=== PATIENT | female | born 1990 | race Hispanic/Latino ===

== ENCOUNTER 2025-08-07 17:20 | Emergency (ER) | payer OTHER, SELFPAY ==
--- NOTE | ~2025-08-07 | CT_ITS ---
EXAMINATION: CT facial & cervical spine wo COMPARISON: None HISTORY: syncopal episode, bruising and pain to eye orbit TECHNIQUE: Axial images were obtained without IV contrast. Sagittal, coronal reconstruction images were obtained from the axial views. CT scan performed using dose optimization techniques including the following automated exposure control; adjustment of mA and/or kV; use of iterative reconstruction technique. Automatic exposure control was used to reduce radiation dose. Permanent radiation dose record is archived to PACS. FINDINGS: CT facial bones: The nasal bones are intact. Anterior maxillary sinus lara and zygomatic arches are intact. Temporomandibular joints are intact. Orbital floors and medial and orbits are intact. No retrobulbar hemorrhage identified. No preseptal soft tissue swelling CT cervical spine: The lung apices and soft tissues are unremarkable. No fracture or subluxation identified. Severe loss of disc height C6-7 with moderate to severe canal and foraminal stenosis, outpatient MRI is suggested. IMPRESSION: No acute fracture. Reviewed, dictated and finalized at location A. IMPRESSION: No acute fracture.
--- NOTE | ~2025-08-07 | CT_ITS ---
EXAMINATION: CT brain wo con COMPARISON: None HISTORY: syncopal episode TECHNIQUE: Axial images were obtained through the brain without IV contrast. CT scan performed using dose optimization techniques including the following automated exposure control; adjustment of mA and/or kV; use of iterative reconstruction technique. Automatic exposure control was used to reduce radiation dose. Permanent radiation dose record is archived to PACS. FINDINGS: No acute infarct or parenchymal hemorrhage. No abnormal mass or mass effect. No midline shift. No extra-axial fluid collections. No hydrocephalus. . Mastoid air cells unremarkable. Sinuses and orbits unremarkable. No acute fracture. No significant facial or scalp soft tissue swelling evident. No radiopaque foreign body is seen. Impression: 1.No acute intracranial abnormality. Reviewed, dictated and finalized at location A. Impression: 1.No acute intracranial abnormality.
[2025-08-07 17:23] VITALS: BP 149/95; PULSE 84; RESP 16; TEMP 36.8; O2SAT 100
[2025-08-07 18:08] VITALS: BP 125/89; PULSE 78; RESP 16; O2SAT 100
--- NOTE | 2025-08-07 18:16 | ECG_ITS ---
Test Date: 2025-08-07 19:56:55 Measurements Intervals [place] Rate: 82 P: 37 CT: 152 QRS: 19 QRSD: 96 T: 20 QT: 376 QTc: 439 Interpretive Statements SINUS RHYTHM LOW QRS VOLTAGE OTHERWISE NORMAL TRACING No previous ECG available for comparison Electronically Signed On 08-08-2025 08:21:10 CDT by Jerome Tolentino M.D.
[2025-08-07 18:17] LABS: Hematocrit 44.5 % (37.0-47.0); Hemoglobin 15.1 g/dL (12.0-15.0); Immature Granulocyte Percent A 0.3 % (0-0.5); Lymphocytes Absolute Auto 2.44 K/mm3 (0.9-3.2); Mean Corpuscular HGB Conc 33.9 g/dl (32-36); Mean Corpuscular Hemoglobin 28.1 pg (26-34); Mean Corpuscular Volume 82.9 fl (80-100); Nucleated Red Blood Cells Absolute Auto 0.000 K/mm3 (0.0-0.012); Nucleated Red Blood Cells Perc 0.0 % (0.0-0.2); Platelet Count Result 213 k/mm3 (150-375); Red Blood Count 5.37 M/mm3 (4.2-5.4); White Blood Count 9.7 K/mm3 (4.5-10.0)
[2025-08-07 18:28] LABS: INR 1.1; Prothrombin Time 13.8 Seconds (11.1-14.7)
[2025-08-07 18:29] LABS: Alanine Aminotransferase 22 U/L (6-35); Albumin Level 4.6 g/dL (3.5-5.1); Alkaline Phosphatase 80 U/L (38-126); Anion Gap 9 mmol/L (4-12); Aspartate Amino Transferase 30 U/L (14-36); Bilirubin,Total 1.1 mg/dL (0.2-1.3); Blood Urea Nitrogen 11 mg/dL (7-17); Calcium 9.2 mg/dL (8.4-10.2); Carbon Dioxide 25 mmol/L (22-30); Chloride 104 mmol/L (98-107); Estimated CRCL calculation 90 ml/min; Estimated Glomerular Filt Rate > 60; Glucose 84 mg/dL (65-110); Partial Thromboplastin Time 29.1 Seconds (22.3-36.8); Potassium 3.9 mmol/L (3.4-5.0); Sodium 138 mmol/L (137-145); Total Protein 8.3 g/dL (6.3-8.2)
[2025-08-07 18:31] VITALS: BP 130/80; PULSE 92; RESP 20; O2SAT 100
--- OUTSIDE RECORDS SUMMARY | 2025-08-07 19:22 | XMS_ITS | Encounter Summary ---
Author Organization [facility] Address [address] [place] [address] Care Team Providers Care Orthopedic Physician Name Role Phone Francheska Bone MD Primary Care Provider + Encounter Details Date Type Department Care Team (Late Contact Info) Description 07/01/2025 Results Follow-Up [facility] [address] [place] [address] Francheska Bone MD [address] [place] [address] Cytopath Cerv/Vag Thin Layer, HUMAN PAPILLOMAVIRUS, HIGH-RISK TYPES Social History Tobacco Use Types Packs/Day Years Used Date Smoking Tobacco: Never Passive Smoke Exposure: Past Smokeless Tobacco: Never Alcohol Use Standard Drinks/Week Comments Not Currently 0 (1 standard drink = 0.6 oz pure alcohol) I drink wine or a cocktail less than twice a year PHQ-2 Answer Date Recorded Patient Health Questionnaire-2 Score 0 06/24/2025 Comments Unknown Sex and Gender Information Value Date Recorded Sex Assigned at Female 06/25/2025 9:35 AM CDT Legal Sex Female 4:09 PM CDT Gender Identity Not on file Sexual Orientation Not on file documented as of this encounter Plan of Treatment Upcoming Encounters Date Type Department Care Team (Late Contact Info) Description 12/27/2025 7:30 AM 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 Family [facility] [address] [place] [address] Francheska Bone MD [address] [place] [phone] documented as of this encounter Visit Diagnoses Not on filedocumented in this encounter Care Teams Orthopedic Physician Relationship Specialty Start Date End Date Francheska Bone MD [address] [place] [phone] PCP - General FAMILY PRACTICE 06/24/25 documented as of this encounter
--- OUTSIDE RECORDS SUMMARY | 2025-08-07 19:22 | XMS_ITS | Clinical Summary ---
Author Organization [facility] Address [address] [place] [address] Care Team Providers Care Chlorinator Name Role Phone Francheska Siegel MD Primary Care Provider + Allergies No known active allergies Medications tirzepatide (ZEPBOUND) 15 MG/0.5ML injectionIndicat ions:Weight Loss Inject 15 mg into the skin once a week. Indications : Weight Loss 6 mL 07/15/2025 Active Active Problems Problem Noted Date Diagnosed Date Adult ADHD 06/24/2025 Autism (HHS/HCC) 06/24/2025 Overweight 06/24/2025 Overview (06/24/2025): - The patient has been on Zepbound, an anti-obesity pharmacotherapy, for the past two years. - This has resulted in a reduction in weight from 220 pounds to 162 pounds. - The medication is covered by her insurance. - No history of pancreatitis and no FH thyroid cancer. Assessment & Plan (06/24/2025 11:51 AM CDT): Weight management: Improved to overweight category. - On Zepbound for 2 years, weight reduced from 220 to 162 pounds. Would like to try higher dose. Increase zepbound to 15 mg weekly. Revisit in 6 months to see response and decide on adjustment. - Insurance covers medication. - Continue current regimen. Encounters Date Type Department Care Team Description 07/01/2025 Results Follow-Up [facility] [address] [facility] [address] Francheska Siegel MD Cytopath Cerv/Vag Thin Layer, HUMAN PAPILLOMAVIRUS, HIGH-RISK TYPES 06/28/2025 Results Follow-Up [address] [place] [address] Francheska Siegel MD CHLAM/GC/TRICHOMONA S PROFILE 06/24/2025 11:10 AM CDT Office Visit [place] [address] [place] [address] Francheska Siegel MD New Patient (Here to get established she just moved here. She is on Zepbound from her previous doctor. ) 06/24/2025 9:35 AM CDT - 06/24/2025 11:59 PM CDT Hospital Encounter [facility] [address] [place] [address] Francheska Siegel MD Discharge Disposition: Home or Self Care (Routine Discharge) 06/24/2025 - 06/24/2025 9:34 AM CDT Hospital Encounter [facility] [address] [place] [address] Francheska Siegel MD Discharge Disposition: Home or Self Care (Routine Discharge) 06/24/2025 Travel from Last 3 Months Family History Medical History Relation Comments No Known Problems Daughter Alcohol Abuse Father Hypertension Father Diabetes Maternal Aunt Drug Abuse Maternal Aunt Alcohol Abuse Maternal Grandfather Diabetes Maternal Grandfather Drug Abuse Maternal Grandfather Early Maternal Grandfather Hypertension Maternal Grandfather Alcohol Abuse Maternal Grandmother Diabetes Maternal Grandmother Heart Disease Maternal Grandmother Hypertension Maternal Grandmother Alcohol Abuse Mother Cancer Mother skin Depression Mother Diabetes Mother Hypertension Mother Mental Health Mother Miscarriages / Stillbirths Mother Alcohol Abuse Paternal Aunt Arthritis Paternal Aunt Depression Paternal Aunt Diabetes Paternal Aunt Drug Abuse Paternal Aunt Hyperlipidemia Paternal Aunt Hypertension Paternal Aunt Mental Health Paternal Aunt Alcohol Abuse Paternal Grandfather Diabetes Paternal Grandfather Early Paternal Grandfather Hypertension Paternal Grandfather Kidney Disease Paternal Grandfather Alcohol Abuse Paternal Uncle Diabetes Paternal Uncle Hypertension Paternal Uncle No Known Problems Sister 2 No Known Problems Son Relation Status Comments Daughter Alive Father Alive Maternal Aunt Alive Maternal Grandfather Alive Maternal Grandmother Alive Mother Alive Paternal Aunt Alive Paternal Grandfather Alive Paternal Uncle Alive Sister 1 Alive Sister 2 Alive Son Alive Social History Tobacco Use Types Packs/Day Years Used Date Smoking Tobacco: Never Passive Smoke Exposure: Past Smokeless Tobacco: Never Tobacco Cessation:Counseling Given: No Alcohol Use Standard Drinks/Week Comments Not Currently [...] on file Sexual Orientation Not on file Last Filed Vital Signs Vital Sign Reading Time Taken Comments Blood Pressure 116/71 06/24/2025 11:13 AM CDT Pulse 92 06/24/2025 11:13 AM CDT Temperature 36.4 C (97.5 F) 06/24/2025 11:13 AM CDT Respiratory Rate - - Oxygen Saturation 100% 06/24/2025 11:13 AM CDT Inhaled Oxygen Concentration - - Weight 73.7 kg (162 lb 6.4 oz) 06/24/2025 11:13 AM CDT Height 157.5 cm (5' 2) 06/24/2025 11:13 AM CDT Body Mass Index 29.7 06/24/2025 11:13 AM CDT Plan of Treatment Upcoming Encounters Date Type Department Care Team (Late st Contact Info) Description 12/27/2025 7:30 AM COLD WORKING SUPERVISOR Office Visit [facility] Family [facility] [address] [facility] [address] [place] [address] Francheska Siegel MD [address] [place] [address] Health Maintenance Due Date Last Done Comments Hepatitis C 2006 DTaP, Tdap and Td Vaccines ( 1 - Tdap) 2007 Hepatitis B Vaccines (1 of 3 - 19+ 3-dose series) 2007 HPV Vaccines (1 - 3-dose SCD M series) 2015 COVID-19 Vaccine (2023-2 5 season) 2025 Annual Physical 06/24/2026 06/24/2025 Cervical Cancer Screening Pa p Smear (Age 30 to 64) Every 3 Years 06/24/2028 06/24/2025 Cervical Cancer Screening Pa p with HPV Testing (Age 30 to 64) Every 5 Years 06/24/2030 06/24/2025 Cervical Cancer Screening with HPV 06/24/2030 PHQ-2 (Physician [place]) Completed 06/24/2025 Meningococcal B Vaccine Aged Out No l onger eligible based on patient's age to complete this topic Meningococcal Vaccine Aged Out No angie ricci eligible based on patient's age to complete this topic Pneumococcal Vaccine: Pediat rics (0 to 5 Years) and At-Risk Patients (6 to 49 Years) Aged Out No longer eligi ble based on patient's age to complete this topic RSV Immunizations Under 20 Months Aged Out No longer eligible based on patient's age to complete this topic Procedures Procedure Name Priority Date/Time Associated Diagnosis Comments HUMAN PAPILLOMAVIRUS, HIGH-RISK TYPES Routine 06/24/2025 12:00 PM CDT CHLAM/GC/TRICHOMONA S PROFILE Routine 06/24/2025 11:38 AM CDT Screening examination for STD (sexually transmitted disease) CYTOPATH CERV/VAG THIN LAYER Routine 06/24/2025 12:00 AM CDT from Last 3 Months Results * HUMAN PAPILLOMAVIRUS, HIGH-RISK TYPES (06/24/2025 12:00 PM CDT) SPEC DESCRIPTION CERVIX 06/25/20 11:56 AM CDT [facility] HPV DNA HIGH RISK NEGATIVE NEGATIVE 06/28/2025 6:14 PM CDT [facility] Comment:SEE CYTOLOGY REPORT 06/24/2025 12:0 0 PM CDT us Francheska Siegel MD PATHOLOGY/CYTOLOGY ORDER PIERRE Final Result [facility] [address] [place] [address], * CHLAM/GC/TRICHOMONAS PROFILE (06/24/2025 11:38 AM CDT) SPEC DESCRIPTION URINE 06/24/20 25 11:38 AM CDT [facility] CHLAMYDIA RNA TMA NEGATIVE NEGATIVE 025 4:47 PM CDT [facility] Comment:PERFORMED BY NUCLEIC ACID AMPLIFICATION N.GONORRHOEAE RNA TMA NEGATIVE NEGATIVE 06/25/2025 4:47 PM CDT [facility] Comment:PERFORMED BY NUCLEIC ACID AMPLIFICATION TRICHOMONAS NEGATIVE NEGATIVE 06/25/2025 4:47 PM CDT [facility] Comment:PERFORMED BY NUCLEIC ACID AMPLIFICATION URINE SPECIMEN / Unknown 06/24/2025 11:38 AM CDT us Francheska Siegel MD MICROBIOLOGY - GENERAL O RDERABLES Final Result [facility] [address] [place] [address], * Cytopath Cerv/Vag Thin Layer (06/24/2025 12:00 AM CDT) THIN PREP PAP [facility] [address] [place] [address] Department of Pathology Pathology Report CERVICAL/VAGINAL PAP SMEAR REPORT Name: RAO HOUSTON Joe Age: 9 1990 (Age: 34) Location: [facility] Sex: F Collected Date: 06/24/2025 [facility] #: [id number] Date Received: 06/25/2025 Date Reported: 06/30/2025 Provider: FRANCHESKA SIEGEL MD INTERPRETATION CERVICAL/ENDOCERVI BERTO: SATISFACTORY FOR EVALUATION. ENDOCERVICAL/TRANS FORMATION ZONE COMPONENT ABSENT. NEGATIVE FOR INTRAEPITHELIAL LESION OR MALIGNANCY. NEGATIVE FOR HIGH RISK HPV. The FDA approved Aptima HPV assay is an in vitro nucleic acid amplification test for the qualitative detection of E6/E7 viral messenger RNA (mRNA) from 14 high-risk types of human papillomavirus (HPV) in cervical specimens. The high-risk HPV types detected by the assay include: 16,18,31,33,35,39, 45,51,52,56,58,59, 66, and 68. Electronically Signed Out By JERSEY Astudillo (ASCP) CLINICAL HISTORY Z12.4 CERVICAL CANCER SCREENING SCREENING PAP ThinPrep Pap Test with HR HPV testing in patient > 30 years requested. Date of Last Menstrual Period: 06/04/2025 Menstrual Status: Regular SPECIMEN SUBMITTED CERVICAL/ENDOCERVI BERTO Specimen Received:1 Thin Prep Vial, Image Assisted Pap (SMD) Please note: The Pap smear is not a diagnostic test. It is a screening test. Negative results on combined screening (Pap test and HPV-DNA) have a high negative predictive value (99.1-100 percent) for cervical cancer. The pap test is not effective in detecting cervical adenocarcinoma. [facility] 06/24/2025 06/25/2025 10: 06 AM CDT Comment:CERVICAL/ENDOCERVICA L Francheska Siegel MD PATHOLOGY/CYTOLOGY ORDER PIERRE Final Result [facility] [address] [place] [address], from Last 3 Months Insurance [employer] Care Teams Chlorinator Relationship Specialty Start Date End Date Francheska Siegel MD [address] [place] [id number] PCP - General FAMILY PRACTICE 06/24/25
--- OUTSIDE RECORDS SUMMARY | 2025-08-07 19:22 | XMS_ITS | Encounter Summary ---
Author Organization [facility] Address [address] [place] [address] Care Team Providers Care Cement Contractor Name Role Phone Francheska Bone MD Primary Care Provider + Encounter Details Date Type Department Care Team (Late Contact Info) Description 06/28/2025 Results Follow-Up [address] [address] Francheska Bone MD [address] [place] [address] CHLAM/GC/TRICHOMONAS PROFILE Social History Tobacco Use Types Packs/Day Years [...] (Late Contact Info) Description 12/27/2025 7:30 AM EDUCATIONAL SPECIALIST Office Visit [address] [address] Francheska Bone MD [address] [place] [address] documented as of this encounter Visit Diagnoses Not on filedocumented in this encounter Care Teams Cement Contractor Relationship Specialty Start Date End Date Francheska Bone MD [address] [place] [id number] PCP - General FAMILY PRACTICE 06/24/25 documented as of this encounter
[2025-08-07] MEDS: SODIUM CHLORIDE 0.9% IV 1,000 ML 999 ML IV CONT (19:39)
[2025-08-07] MEDS: METOCLOPRAMIDE HCL INJ 10 MG/2 ML VIAL IV PUSH (19:40)
[2025-08-07] MEDS: ACETAMINOPHEN 500 MG TABLET 1000 MG PO (19:40)
[2025-08-07 19:59] VITALS: PULSE 99
--- NOTE | 2025-08-07 19:59 | ED.HEATRA ---
HPI - Head Injury General Chief complaint: Head Injury Stated complaint: not feeling well after syncopal episode saturday Time Seen by Provider: 08/07/25 18:39 Source: patient Mode of arrival: ambulatory Limitations: no limitations History of Present Illness HPI Narrative: This is a 35-year-old female that presents to the emergency department after syncopal episode 4 days ago. Reports she was feeling lightheaded/dizzy. She passed out and hit her head. Reports since she has had headaches, nausea and vomiting. Denies vision changes, chest pain, shortness of breath, focal numbness or weakness. Related Data Allergies Allergy/AdvReac Type Severity Reaction Status Date / Time No Known Allergies Allergy Verified 08/07/25 17:26 Review of Systems Review of Systems: All systems reviewed & are unremarkable except as noted in HPI and below PMFSH Past Medical History Medical History (Updated 08/07/25 @ 20:05 by Kerri Fleming PA-C) No active medical problems Exam Narrative: GENERAL: Well-appearing, well-nourished, and in no acute distress. HEAD: Normocephalic, atraumatic. EYES: PERRLA and EOMI. ENT: Nares clear, no rhinorrhea or epistaxis. Mucous membranes moist. Oropharynx without tonsillar hypertrophy exudate or other lesions. Bilateral TMs pearly mendoza non-bulging NECK: Supple. No adenopathy or masses. CHEST: Clear to auscultation. No respiratory distress. No wheezes rales or rhonchi HEART: Regular rate and rhythm. No murmur heard. Normal peripheral pulses. EXTREMITIES: Normal range of motion. No edema. Strength equal in bilateral upper and lower extremities (5/5) SKIN: Warm, dry, no rash. NEURO: No focal deficits. Alert and oriented x3. Cranial nerves 2-12 grossly intact. Normal [id number] PSYCH: Normal mood and affect Course Course Emergency Course: Patient updated on her workup and agrees with plan of care Vital Signs Vital signs: Vital Signs Temperature 98.2 F 08/07/25 17:23 Pulse Rate 84 08/07/25 17:23 Respiratory Rate 16 08/07/25 17:23 Blood Pressure 149/95 H 08/07/25 17:23 Pulse Oximetry 100 08/07/25 17:23 Oxygen Delivery Room Air 08/07/25 17:23 Temperature 98.2 F 08/07/25 17:23 Pulse Rate 99 08/07/25 19:59 Respiratory Rate 20 08/07/25 18:31 Blood Pressure 130/80 08/07/25 18:31 Pulse Oximetry 100 08/07/25 18:31 Oxygen Delivery Room Air 08/07/25 17:23 MDM - Head Injury MDM Narrative Medical decision making narrative: Patient presents emergency department after a syncopal episode 4 days ago with head injury. Her vitals are stable. She is neurologically intact. CBC metabolic panel without concerning findings. test is negative. EKG shows normal sinus rhythm. CT brain, cervical spine, facial bones without acute findings. Patient updated on her workup and agrees with plan of care. She is to follow up with primary provider. She was given warnings to return to the ER Differential Diagnosis Differential diagnosis: Likely concussion without loss of consciousness, closed head injury, postconcussion syndrome, subdural hematoma, concussion with loss of consciousness and other (Vasovagal syncope, orthostatic hypotension, dehydration, electrolyte derangement) Lab Data Attestation: I reviewed the patient's lab results. 08/07/25 18:10 08/07/25 18:09 Labs: Lab Results 08/07/25 08/07/25 08/07/25 Range/Units 18:09 18:10 19:59 WBC 9.7 (4.5-10.0) K/mm3 RBC 5.37 (4.2-5.4) M/mm3 Hgb 15.1 H (12.0-15.0) g/dL Hct 44.5 (37.0-47.0) % MCV 82.9 (80-100) fl MCH 28.1 (26-34) pg MCHC 33.9 (32-36) g/dl RDW 12.7 (11.5-14.5) % Plt Count 213 (150-375) k/mm3 MPV 11.7 H (7.4-10.4) fl Immature Gran % (Auto) 0.3 (0-0.5) % Neut % (Auto) 69.3 (45.5-73.1) % Lymph % (Auto) 25.2 (18.3-44.2) % Sandoval % (Auto) 3.9 (2.6-8.5) % Eos % (Auto) 0.7 (0-4.4) % Baso % (Auto) 0.6 (0.2-1.2) % Lymph # (Auto) 2.44 (0.9-3.2) K/mm3 Sandoval # (Auto) 0.4 (0.1-0.6) K/mm3 Eos # (Auto) 0.1 (0-0.3) K/mm3 Baso # (Auto) 0.1 (0.0-0.1) K/mm3 Abs Immat Gran (auto) 0.03 (0.00-0.031) K/mm3 Absolute Neuts (auto) 6.7 (1.3-6.7) K/mm3 Absolute Nucleated RBC 0.000 (0.0-0.012) K/mm3 Nucleated RBC % 0.0 (0.0-0.2) % PT 13.8 (11.1-14.7) Seconds INR 1.1 APTT 29.1 (22.3-36.8) Seconds Sodium 138 (137-145) mmol/L Potassium 3.9 (3.4-5.0) mmol/L Chloride 104 (98-107) mmol/L Carbon Dioxide 25 (22-30) mmol/L Anion Gap 9 (4-12) mmol/L BUN 11 (7-17) mg/dL Creatinine 0.67 L (0.7-1.0) mg/dL Estim Creat Clear Calc 90 ml/min Estimated GFR > 60 (59 - ) Glucose 84 (65-110) mg/dL Calcium 9.2 (8.4-10.2) mg/dL Total Bilirubin 1.1 (0.2-1.3) mg/dL AST 30 (14-36) U/L ALT 22 (6-35) U/L Alkaline Phosphatase 80 (38-126) U/L Total Protein 8.3 H (6.3-8.2) g/dL Albumin 4.6 (3.5-5.1) g/dL POC Urine HCG, Qual Negative (Negative) Imaging Data Radiologist's impression: ITS Impressions Head CT 08/07/25 18:45 Impression: 1.No acute intracranial abnormality. Head/Cervical Spine/Facial Bones CT 08/07/25 18:51 IMPRESSION: No acute fracture. ECG Data EKG #1: ECG completion date: 08/07/25 EKG Interpretation: normal rate, sinus rhythm, no ST changes and normal QT Critical Care Time Critical Care Time Critical Care Time: No Discharge Plan Discharge Clinical Impression: Dizziness Syncope Qualifiers: Syncope type: unspecified Qualified Code(s): R55 - Syncope and collapse Head injury Qualifiers: Encounter type: initial encounter Qualified Code(s): S09.90XA - Unspecified injury of head, initial encounter Patient Disposition: Home Condition: Stable Instructions: Syncope (ED), Head Injury (ED), Dizziness (ED) Additional Instructions: Return to the emergency department if you experience fever, chest pain, shortness of breath, abdominal pain with nausea and vomiting, weakness, numbness, or any other symptoms that are concerning to you. Rest. Remain well hydrated. Tylenol or Ibuprofen as needed for pain Follow up with your primary care doctor Patient Language: Icelandic Follow-up/Referrals: Smitha,Francheska Nieves MD [Primary Care Provider, Unknown]
[2025-08-07 20:01] LABS: BEDSIDEPREGUCG Negative (Negative)
[2025-08-07 20:31] VITALS: BP 138/72; PULSE 92; RESP 18; TEMP 37; O2SAT 99
== END 2025-08-07 20:34 | disposition home or self-care (01) ==
PROVIDERS: Emergency Medicine; Emergency Provider Physician Assistant; PCP Student in an Organized Health Care Education/Training Program
DX: R55 Syncope and collapse (principal); R42 Dizziness and giddiness; S09.90XA Unspecified injury of head, initial encounter; W18.39XA Other fall on same level, initial encounter
CPT/HCPCS: 36415; 70450; 70486; 72125; 80053; 81025; 85025; 85610; 85730; 93005; 96361; 96374; 96375; 99284; A9270; J1200; J2765; J7030